=== PATIENT | female | born 1970 | race Two or more races ===

== ENCOUNTER 2022-03-02 05:33 | Emergency (ER) | payer MEDICAID ==
[~2022-03-02] VITALS: Ht 170.2 cm; Wt 81.6 kg
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
--- NOTE | 2022-03-02 06:28 | NUR ---
20G IV LINE ESTABLISHED AT [facility]. BLOOD DRAWN AND SENT TO LAB.
--- NOTE | 2022-03-02 06:48 | NUR ---
urine collected and sent to lab
[2022-03-02 06:52] LABS: BASOPHILS # (AUTO) 0.1 K/uL (0.0-0.2); BASOPHILS % (AUTO) 0.7 % (0.0-2.0); EOSINOPHILS % (AUTO) 0.9 % (0.0-6.0); HEMATOCRIT 42 % (33-45); HEMOGLOBIN 13.8 g/dL (11.5-14.8); LYMPHOCYTES # (AUTO) 1.7 K/uL (0.8-4.8); LYMPHOCYTES % (AUTO) 19.1 % (20.0-44.0); MEAN CORPUSCULAR HGB CONC 33 g/dl (31.0-36.0); MEAN CORPUSCULAR VOLUME 75 fL (82-100); MONOCYTES # (AUTO) 0.4 K/uL (0.1-1.30); MONOCYTES % (AUTO) 3.9 % (2.0-12.0); NEUTROPHILS # (AUTO) 6.8 K/uL (1.8-8.9); NEUTROPHILS % (AUTO) 75.4 % (43.0-81.0); PLATELET COUNT (AUTO) 258 K/uL (150-450)
[2022-03-02 06:58] LABS: CREATININE 0.9 mg/dL (0.6-1.3); POTASSIUM 3.5 mmol/L (3.5-5.1)
[2022-03-02 07:02] LABS: ALBUMIN 3.4 g/dL (3.4-5.0); BILIRUBIN,DIRECT 0.1 mg/dL (0.0-0.2); BILIRUBIN,TOTAL 0.5 mg/dL (0.2-1.0)
[2022-03-02] MEDS ORDERED: IOHEXOL-300 100 ML VIAL IV ONE (07:13)
[2022-03-02] MEDS ORDERED: IV NS 0.9% 250 ML IV ONE (07:13)
[2022-03-02] MEDS ORDERED: CT SWABBABLE VALVE TRANS SET 1 EA INFUS.SET MC ONE (07:13)
[2022-03-02 07:25] LABS: BILIRUBIN,URINE SMALL (NEGATIVE); COLOR,URINE YELLOW (YELLOW); LEUKOCYTE ESTERASE ,URINE NEGATIVE (NEGATIVE); NITRITE, URINE NEGATIVE (NEGATIVE); PROTEIN,URINE 100 mg/dl (NEGATIVE); UGLUCOSE NEGATIVE (NEGATIVE); UROBILINOGEN,URINE 0.2 EU/dL (0.2)
[2022-03-02 07:41] LABS: BACTERIA,URINE 2+ /HPF (None Seen)
[2022-03-02 07:42] LABS: CALCIUM OXALATE CRYSTALS,UR Few /HPF (None Seen)
[2022-03-02] MEDS ORDERED: NAPR-1192 PO (08:22)
--- NOTE | 2022-03-02 08:36 | NUR ---
IV removed. Catheter intact and site benign. Pressure and 4x4 applied to site. No bleeding noted.Patient discharged to home in stable condition. Written and verbal after care instructions given. Patient verbalizes understanding of instruction.
[2022-03-02 08:37] VITALS: BP 133/84
== END 2022-03-02 08:38 | disposition home or self-care (01) ==
LOC: ER 05:45
DX: S00.93XA Contusion of unspecified part of head, initial encounter (principal); M54.50 Low back pain, unspecified; V49.49XA Driver injured in collision with other motor vehicles in traffic accident, initial encounter; Y93.89 Activity, other specified; Y92.413 State road as the place of occurrence of the external cause; Y99.8 Other external cause status
CPT/HCPCS: 99285; 72125; 71260; 70450; 74177; 85025; 80048; 87086; 80076; 84703; 81001; 36415; J7050; Q9967